=== PATIENT | female | born 1950 | race Caucasian/White ===

== ENCOUNTER → 2016-05-11 | Outpatient (CLI) | payer BC ==
[~2016-05-11] MED LIST: ADVIL200 MG PO; KEFLEX500 MG PO; NORCO 5-325 TA1 EACH PO; PREMPRO 0.45-11 EACH PO
== END | disposition disaster alternative care site (69) ==
LOC: GRAD 13:42
DX: S52.501D Unspecified fracture of the lower end of right radius, subsequent encounter for closed fracture with routine healing (principal); S52.601D Unspecified fracture of lower end of right ulna, subsequent encounter for closed fracture with routine healing; X58.XXXD Exposure to other specified factors, subsequent encounter